=== PATIENT | female | born 1965 | race Caucasian/White ===

== ENCOUNTER 2019-01-02 17:10 | Emergency (ER) | payer SELFPAY ==
[2019-01-02 17:49] VITALS: TEMP 97.3; BMI 23.3
--- NOTE | 2019-01-02 17:51 | PDOC ---
Rapid Medical Evaluation Chief Complaint: Pain, Acute Time Seen by Provider: 01/02/19 17:44 Medical Evaluation: 01/02/19 17:45 I have performed a brief in-person evaluation of this patient. The patient presents with a chief complaint of: abd pain after taking Oxycodone took ~ 5 hours ago. - was mothers medication and had never taken before. States feels much improved now Pertinent physical exam findings: pale, lethargic but A&Ox 3 I have ordered the following: nothing The patient will proceed to the ED for further evaluation. 01/02/19 17:48 Discharge Disposition - Diagnosis Medication adverse effect - Referrals - Patient Instructions - Post Discharge Activity
--- NOTE | 2019-01-02 18:07 | PDOC ---
History of Present Illness - General Chief Complaint: Pain, Acute Stated Complaint: ALLERGIC REACTION Time Seen by Provider: 01/02/19 17:44 - History of Present Illness Initial Comments: 01/02/19 18:03 53-year-old female with a past medical history of depression self-medicating Tamy today with her mother's oxycodone. This was about 5 hours prior to arrival she took a nap and now she is feeling better. She is asymptomatic at this time. Past History - Past Medical History Allergies/Adverse Reactions: Allergies Allergy/AdvReac Type Severity Reaction Status Date / Time No Known Allergies Allergy Verified 01/02/19 17:49 Home Medications: Ambulatory Orders Bupropion HCl [Wellbutrin Xl] 300 mg PO DAILY 01/02/19 Dextroamphetamine/Amphetamine [Adderall Xr 30 mg Capsule] 60 mg PO DAILY Duloxetine HCl [Cymbalta] 120 mg PO DAILY 01/02/19 COPD: No Psychiatric Problems: Yes (bipolar disorder) - Suicide/Smoking/Psychosocial Hx Smoking History: Current every day smoker Number of Cigarettes Smoked Daily: 8 Information on smoking cessation initiated: No Hx Alcohol Use: No Drug/Substance Use Hx: No Review of Systems - Review of Systems Neurological: Yes: See HPI *Physical Exam - Vital Signs Last Vital Signs Temp Pulse Resp BP Pulse Ox 97.3 F L 67 16 113/51 L 97 01/02/19 17:45 01/02/19 17:45 01/02/19 17:45 01/02/19 17:45 01/02/19 17:45 - Physical Exam Comments: 01/02/19 18:05 HEAD: NC/AT EYES: Conjuntiva clear Ears: Canals and TM's normal NOSE: No d/c THROAT: Moist mucous membrances, oral pharanx clear, uvula midline NECK: Supple without adenopathy CARDIAC: S1 S2 LUNGS: CTA Full and Equal breath sounds ABDOMEN: Soft NT ND MS: Full ROM in all joints without edema NEUROLOGIC: No gross sensory or motor deficits, NVID; negative Romberg SKIN: Normal color and temperature no lesions or rashes Medical Decision Making - Medical Decision Making 01/02/19 18:05 Patient asymptomatic now after taking Percocet. She states she is opioid adalberto. She'll follow up with her PCP. 01/02/19 18:07 BP upon d/c is 127/69 *DC/Admit/Observation/Transfer Diagnosis at time of Disposition: Medication adverse effect - Discharge Dispostion Disposition: HOME Condition at time of disposition: Stable Decision to Admit order: No - Referrals Referrals: Uri Tang MD [Staff Physician] - - Patient Instructions Printed Discharge Instructions: DI for Prescription Opioid Use Additional Instructions: Please not self medicated with another's prescription medication. Return to the emergency room for worsening symptoms and follow up with her primary care physician in 1-2 days suture symptoms persist. - Post Discharge Activity
[2019-01-02 18:14] VITALS: BP 127/68; PULSE 68
== END 2019-01-02 18:02 | disposition home or self-care (01) ==
LOC: JERFT 17:10
DX: T40.2X1A Poisoning by other opioids, accidental (unintentional), initial encounter (principal); R10.9 Unspecified abdominal pain; Y92.038 Other place in apartment as the place of occurrence of the external cause
CPT/HCPCS: 99281-25

== ENCOUNTER 2019-06-05 17:46 | Inpatient (IN) | payer SELFPAY ==
--- NOTE | 2019-06-05 17:50 | PDOC ---
History of Present Illness - General History Source: Patient Exam Limitations: Clinical Condition - History of Present Illness Initial Comments: 06/05/19 18:45 53 yo F with a hx of bipolar disorder and depression HIRAM presents to the emergency department with AMS found down at her home. Per EMS, a "roommate" called saying the patient was altered. The patient was brought to the emergency department believed to have a seizure without a hx of seizures. I gathered the medical history from the patient's daughter (Jacquelyn Ambrose; [phone]) who states her mother has a hx of suicidal attempts 2-3 years ago with overdose on lithium (states she is no longer on lithium). The patient has access to cymbalta , adderall, xanax, and wellbutrin. Per the daughter, the mother recently was served an eviction notice from her home, lost her job recently, and had an exacerbation of her depression symptoms over the past week. Unable to perform ROS on the patient due to clinical condition. Allergies: NKDA Shx: Recent right hernia repair Social: Tobacco use positive. Daughter denies that the patient uses substance and alcohol. <Derek Garrett - Last Filed: 06/07/19 17:08> <Cj Hearn - Last Filed: 06/10/19 09:40> - General Chief Complaint: Seizure Stated Complaint: POSSIBLE SEIZURE Past History - Past Medical History COPD: No Psychiatric Problems: Yes (bipolar disorder) - Psycho Social/Smoking Cessation Hx Smoking History: Current every day smoker Number of Cigarettes Smoked Daily: 8 Hx Alcohol Use: No Drug/Substance Use Hx: No <Derek Garrett - Last Filed: 06/07/19 17:08> <Cj Hearn - Last Filed: 06/10/19 09:40> - Past Medical History Allergies/Adverse Reactions: Allergies Allergy/AdvReac Type Severity Reaction Status Date / Time No Known Allergies Allergy Verified 06/05/19 18:16 Home Medications: Ambulatory Orders Bupropion HCl [Wellbutrin Xl] 300 mg PO DAILY 01/02/19 Dextroamphetamine/Amphetamine [Adderall Xr 30 mg Capsule] 60 mg PO DAILY Duloxetine HCl [Cymbalta] 120 mg PO DAILY 01/02/19 Review of Systems - Review of Systems Able to Perform ROS?: No (AMS) Is the patient limited Yi proficient: No <Derek Garrett - Last Filed: 06/07/19 17:08> *Physical Exam - Physical Exam General Appearance: Yes: Nourished, Appropriately Dressed, Mild Distress, Other (dry mucous membranes. rhythmic movement of hip flexion bilaterally). No: Obese HEENT: positive: EOMI, ARIANA, Hearing Grossly Normal. negative: Normal Voice ( incoherent), Pharynx Normal (dry mucous membranes), Pale Conjunctivae, Scleral Icterus (R), Scleral Icterus (L), Pharyngeal Erythema, Tonsillar Exudate, Nasal Congestion, Rhinorrhea Neck: positive: Trachea midline, Supple. negative: Tender, Lymphadenopathy (R) , Lymphadenopathy (L), Tender lateral, Tender midline Respiratory/Chest: positive: Lungs Clear, Normal Breath Sounds. negative: Chest Tender, Respiratory Distress, Accessory Muscle Use, Rhonchi, Stridor, Wheezing Cardiovascular: positive: Regular Rhythm, Regular Rate, S1, S2. negative: Systolic Murmur Gastrointestinal/Abdominal: positive: Normal Bowel Sounds, Flat, Soft. negative : Tender Lymphatic: negative: Adenopathy Musculoskeletal: positive: Normal Inspection. negative: CVA Tenderness, Vertebral Tenderness Extremity: positive: Normal Capillary Refill, Normal Inspection, Normal Range of Motion. negative: Tender Integumentary: positive: Normal Color, Dry, Warm Neurologic: positive: correctional treatment specialist II-XII NML intact (grossly intact; limited examination ), Alert, Disoriented. negative: Fully Oriented (oriented to self only), Normal Mood/Affect, Normal Response, EOM Palsy, Facial Droop, Depressed Affect <TamiDerek - Last Filed: 06/07/19 17:08> - Vital Signs Last Vital Signs Temp Pulse Resp BP Pulse Ox 98.0 F 64 16 144/78 99 06/08/19 08:00 06/08/19 08:00 06/08/19 08:00 06/08/19 08:00 06/07/19 21:00 <Cj Hearn - Last Filed: 06/10/19 09:40> ED Treatment Course - LABORATORY CBC & Chemistry Diagram: 06/06/19 06:27 06/06/19 06:27 <TamiDerek - Last Filed: 06/07/19 17:08> - LABORATORY CBC & Chemistry Diagram: 06/06/19 06:27 06/06/19 06:27 - ADDITIONAL ORDERS Additional order review: 06/05/19 18:00 RBC 4.32 MCV 89.3 MCHC 33.3 RDW 13.0 MPV 8.0 Neutrophils % 85.1 H Lymphocytes % 11.2 Monocytes % 3.2 L Eosinophils % 0.0 Basophils % 0.5 - Medications Given in the ED: ED Medications Discontinued Medications Generic Name Dose Route Start Last Admin Trade Name Freq PRN Reason Stop Dose Admin Acetaminophen 975 mg 06/06/19 12:21 06/06/19 12:23 Tylenol - PO 06/06/19 12:22 975 mg ONCE ONE Administration Acetaminophen 650 mg 06/06/19 17:38 06/07/19 04:55 Tylenol - PO 650 mg Q6H PRN Administration FEVER Bupropion HCl 300 mg 06/07/19 22:30 06/08/19 10:22 Wellbutrin Xl - PO 300 mg DAILY WALESKA Administration Duloxetine HCl 120 mg 06/07/19 22:17 06/08/19 10:22 Cymbalta - PO 120 mg DAILY WALESKA Administration Heparin Sodium (Porcine) 5,000 unit 06/05/19 22:00 06/08/19 10:24 Heparin - SQ Not Given BID WALESKA Sodium Chloride 1,000 mls @ 1,000 mls/hr 06/05/19 18:21 06/05/19 18:42 Normal Saline - IV 06/05/19 19:20 1,000 mls/hr ASDIR STA Administration Sodium Chloride 1,000 mls @ 100 mls/hr 06/05/19 20:45 06/07/19 21:20 Normal Saline - IV 100 mls/hr ASDIR WALESKA Administration Lorazepam 1 mg 06/05/19 17:54 06/05/19 18:42 Ativan Injection - IVPUSH 06/05/19 17:55 Not Given ONCE ONE Metoclopramide HCl 10 mg 06/05/19 23:56 06/06/19 02:03 Reglan Injection - IVPUSH 06/05/19 23:57 10 mg ONCE ONE Administration Nicotine 21 mg 06/07/19 12:00 06/07/19 12:08 Nicoderm Patch - TD 06/07/19 12:01 21 mg ONCE ONE Administration Sodium Chloride 1,000 ml 06/05/19 19:42 06/05/19 21:08 Normal Saline - IV 06/05/19 19:43 1,000 ml ONCE ONE Administration <Cj Hearn - Last Filed: 06/10/19 09:40> Medical Decision Making - Medical Decision Making 53 yo F with a hx of bipolar disorder and depression HIRAM presents to the emergency department with AMS found down at her home. Initial vitals: Initial Vital Signs Temp Pulse Resp BP Pulse Ox 97.3 F L 79 16 90/79 99 06/05/19 17:50 06/05/19 17:50 06/05/19 17:50 06/05/19 17:50 06/05/19 17:50 Work up: patient presents to the emergency department s/p possible seizure per EMS who states another individual in the home called EMS services. The patient is arousable, currently screaming out for her mother and able to say her name but unable to answer most questions. Patient is on multiple medications per the chart. I spoke to the daughter who stated that she has had multiple suicidal attempts in the past with overdosing on lithium (states she is not on lithium currently) Will treat the case as a possible toxidrome. Will obtain CT head, metabolic derangements, EKG to screen for arrhythmia, CBC, CMP, TROP, ethanol, salicylate , lithium level, and tylenol level. Will obtain UDS, UA, and Ucx. I spoke to poison control which indicated supportive care. agrees with current management. Ddx includes xanax overdose, adderall overdose (less likely because of periodic lethargy), anti-cholinergic toxicity (given use of welbutrin), and less likely to be serotonin syndrome. 06/05/19 19:03 Patient stated she was trying to hurt herself when she took the extra meds. Laboratory Tests 06/05/19 06/05/19 06/05/19 18:00 18:00 18:00 WBC 10.3 H RBC 4.32 Hgb 12.8 Hct 38.5 MCV 89.3 MCH 29.7 MCHC 33.3 RDW 13.0 Plt Count 250 MPV 8.0 Absolute Neuts (auto) 8.7 H Neutrophils % 85.1 H Lymphocytes % 11.2 Monocytes % 3.2 L Eosinophils % 0.0 Basophils % 0.5 Nucleated RBC % 0 PT with INR INR PTT (Actin FS) VBG pH POC VBG pCO2 POC VBG pO2 VBG HCO3 VBG O2 Sat (James) VBG Base Excess Sodium Potassium Chloride Carbon Dioxide Anion Gap BUN Creatinine Est GFR (CKD-EPI)AfAm Est GFR (CKD-EPI)NonAf Random Glucose Calcium Magnesium Total Bilirubin AST ALT Alkaline Phosphatase Ammonia Creatine Kinase Troponin I Total Protein Albumin TSH Salicylates < 1.7 L Acetaminophen <2.0 Deans Alcohol, Quantitative 06/05/19 06/05/19 06/05/19 18:00 18:00 18:00 WBC RBC Hgb Hct MCV MCH MCHC RDW Plt Count MPV Absolute Neuts (auto) Neutrophils % Lymphocytes % Monocytes % Eosinophils % Basophils % Nucleated RBC % PT with INR INR PTT (Actin FS) VBG pH 7.34 POC VBG pCO2 49.1 POC VBG pO2 < 49 H VBG HCO3 25.8 VBG O2 Sat (James) 73.0 VBG Base Excess 0.1 Sodium 139 Potassium 4.4 Chloride 105 Carbon Dioxide 26 Anion Gap 8 BUN 11.1 Creatinine 0.7 Est GFR (CKD-EPI)AfAm 113.84 Est GFR (CKD-EPI)NonAf 98.23 Random Glucose 127 H Calcium 8.3 L Magnesium 1.8 Total Bilirubin 0.3 AST 21 ALT 19 Alkaline Phosphatase 67 Ammonia Creatine Kinase 87 Troponin I < 0.02 Total Protein 6.4 Albumin 3.7 TSH 0.56 Salicylates Acetaminophen Deans Alcohol, Quantitative < 3 06/05/19 06/05/19 06/05/19 18:00 18:31 19:00 WBC RBC Hgb Hct MCV MCH MCHC RDW Plt Count MPV Absolute Neuts (auto) Neutrophils % Lymphocytes % Monocytes % Eosinophils % Basophils % Nucleated RBC % PT with INR 11.10 INR 0.94 PTT (Actin FS) 27.3 VBG pH POC VBG pCO2 POC VBG pO2 VBG HCO3 VBG O2 Sat (James) VBG Base Excess Sodium Potassium Chloride Carbon Dioxide Anion Gap BUN Creatinine Est GFR (CKD-EPI)AfAm Est GFR (CKD-EPI)NonAf Random Glucose Calcium Magnesium Total Bilirubin AST ALT Alkaline Phosphatase Ammonia 18.30 Creatine Kinase Troponin I Total Protein Albumin TSH Salicylates Acetaminophen Deans 0 L Alcohol, Quantitative labs within normal limit. EKG shows NSR without QRS widening, ST elevations or depressions. There is QT prolongation with it at QTc at [address] within normal limits. Patient was started on 1 L of NS. Ativan ordered PRN for agitation. Patient signed out to Dr. Charlton. <Derek Garrett - Last Filed: 06/07/19 17:08> - Medical Decision Making 06/10/19 09:40 ativan was not given upon arrival as pt was able to comply with treatmen tand obtain CT head <Cj Hearn - Last Filed: 06/10/19 09:40> Discharge - Discharge Information Problems reviewed: Yes <Derek Garrett - Last Filed: 06/07/19 17:08> <Cj Heanr - Last Filed: 06/10/19 09:40> - Discharge Information Clinical Impression/Diagnosis: Altered mental status, Depression Disposition: HOME
--- NOTE | 2019-06-05 17:57 | PDOC ---
Attending Attestation - Resident Resident Name: Derek Garrett - ED Attending Attestation I have performed the following: I have examined & evaluated the patient, The case was reviewed & discussed with the resident, I agree w/resident's findings & plan, Exceptions are as noted - HPI HPI: 06/05/19 17:54 53y hx of bipolar disorder presents with AMS -Per EMS the patient was found laying on the ground by the patient's roommate. There is no other information given by EMS, and roommate stayed home. The patient is unable to give any history she did tell us that her name was Katalina. The patient's mother called the hospital saying that she was brought in for evaluation and is coming to see the patient. The patient is unable to give us any history she is screaming and asking for her mother, looking disheveled, unable to speak clearly but when asked for name last name is Lei the patient does nod her head. On arrival the patient's BGM was 128. GENERAL: The patient is awake,, agitated, screaming incoherently HEAD: Normocephalic, atraumatic. EYES: extraocular movements intact, sclera anicteric, conjunctiva clear. ENT: Normal voice, dry mucous membranes. NECK: Normal range of motion, supple LUNGS: Breath sounds equal, clear to auscultation bilaterally. No wheezes, no rhonchi, no rales. HEART: Regular rate and rhythm, normal S1 and S2 without murmur, rub or gallop. ABDOMEN: Soft, mild diffuse lower abdominal tenderness, clean scar noted on the right lower quadrant EXTREMITIES: Normal range of motion, no edema. NEUROLOGICAL: No facial assymetry, Normal speech, Withdraws to pain bilaterally , rhythmic motions of lower extremities PSYCH: agitated SKIN: Warm, Dry, normal turgor, Patient's oral membrane is dry - will hydrate Will obtain a CT head, will rule out metabolic derangements, ingestions, acs ekg to screen fora rrythmias Will likely need some Ativan as the patient is agitated and will not cooperate with CT. after further discussion with family and pts son - pt has a history of SA with lithium ingestion. per mother who is bedside -the pt had recently lost evertyhing including her car, house and job and has been fairly stressed out. pt does endorse taking extra meds to harm herself - did not elaborate on what she took. will dw tox - pt is on buproprion, xanax, adderal ekg noted for prolonged qtc - Physicial Exam PE: 06/10/19 08:15 see above - Critical Care Time Total Critical Care Time: 35 Critical Care Statement: The care of this patient involved high complexity decision making to prevent further life threatening deterioration of the patient 's condition and/or to evaluate & treat vital organ system(s) failure or risk of failure. - Medical Decision Making 06/05/19 19:15 labs pending case signed out to evening team to dispo the patient and review results Heart Score/ECG Review - ECG Impressions Comment:: 06/05/19 18:22 Twelve-lead EKG was performed and reviewed by me. There is normal sinus rhythm with a normal rate. rate of 62 The axis is normal. qtc prolongation at 506
[2019-06-05 18:18] LABS: BASO % 0.5 % (0-2.0); HEMATOCRIT 38.5 % (32.4-45.2); HEMOGLOBIN 12.8 GM/dL (10.7-15.3); LYMPH % 11.2 % (8-40); MCH 29.7 pg (25.7-33.7); MCHC 33.3 g/dl (32.0-36.0); MEAN CELL VOLUME 89.3 fl (80-96); MONO % 3.2 % (3.8-10.2); NEUT % 85.1 % (42.8-82.8); PLATELET COUNT 250 K/MM3 (134-434); RBC 4.32 M/mm3 (3.60-5.2); VENOUS PC02 49.1 mmHg (38-52); VENOUS PH 7.34 (7.31-7.41); WHITE BLOOD COUNT 10.3 K/mm3 (4.0-10.0)
[2019-06-05] MEDS ORDERED: SODIUM CHLORIDE 1,000 ML IV STA (18:21)
[2019-06-05 18:25] LABS: VENOUS PO2 < 49 mmHg (28-48)
[2019-06-05 18:43] LABS: INR 0.94 (0.83-1.09); PROTHROMBIN TIME (PATIENT) 11.1 SEC (9.7-13.0)
[2019-06-05 18:46] LABS: ACTIVATED PTT 27.3 SECONDS (25.2-36.5)
[2019-06-05 18:55] LABS: MAGNESIUM 1.8 mg/dL (1.8-2.4)
[2019-06-05 19:05] LABS: ALBUMIN 3.7 g/dl (3.4-5.0); ALK PHOS 67 U/L (45-117); ANION GAP 8 MMOL/L (8-16); BILIRUBIN,TOTAL 0.3 mg/dL (0.2-1); BLOOD UREA NITROGEN 11.1 mg/dL (7-18); CALCIUM 8.3 mg/dL (8.5-10.1); CHLORIDE 105 mmol/L (98-107); CO2 26 mmol/L (21-32); CREATININE 0.7 mg/dL (0.55-1.3); GLUCOSE,RANDOM 127 mg/dL (74-106); POTASSIUM 4.4 mmol/L (3.5-5.1); SGOT/AST 21 U/L (15-37); SGPT/ALT 19 U/L (13-61); SODIUM 139 mmol/L (136-145); TOT PROT 6.4 g/dl (6.4-8.2)
--- NOTE | 2019-06-05 19:14 | PDOC ---
ED Treatment Course - LABORATORY CBC & Chemistry Diagram: 06/05/19 18:00 06/05/19 18:00 Medical Decision Making - Medical Decision Making Pt signed out to me by Dr. Garrett, see prior note. 53 year old female with PMH bipolar disorder, suicidal attempt (lithium ingestion) BIBA to ED after being found down at home. There was question of a seizure, but none was witnessed and no post-ictal period was observed. Jacquelyn Ambrose (pt daughter) ) reported pt has had a lot of life stressors lately and she believed the pt ingested something to kill herself. Pt awoke in ED and reported she took pills of unknown type and unknown amount in an effort to kill herself. Tox center recommended 24 hour observation for unknown ingestion. Initial Vital Signs Temp Pulse Resp BP Pulse Ox 97.3 F L 79 16 90/79 99 06/05/19 17:50 06/05/19 17:50 06/05/19 17:50 06/05/19 17:50 06/05/19 17:50 EKG performed at 1734: rate 76, regular rhythm, normal axis, QTc 506, nonspecific ST changes. Ativan was ordered for agitation, but then not given after pt calmed down. Laboratory Last Values WBC 10.3 K/mm3 (4.0-10.0) H 06/05/19 18:00 RBC 4.32 M/mm3 (3.60-5.2) 06/05/19 18:00 Hgb 12.8 GM/dL (10.7-15.3) 06/05/19 18:00 Hct 38.5 % (32.4-45.2) 06/05/19 18:00 MCV 89.3 fl (80-96) 06/05/19 18:00 MCH 29.7 pg (25.7-33.7) 06/05/19 18:00 MCHC 33.3 g/dl (32.0-36.0) 06/05/19 18:00 RDW 13.0 % (11.6-15.6) 06/05/19 18:00 Plt Count 250 K/MM3 (134-434) 06/05/19 18:00 MPV 8.0 fl (7.5-11.1) 06/05/19 18:00 Absolute Neuts (auto) 8.7 K/mm3 (1.5-8.0) H 06/05/19 18:00 Neutrophils % 85.1 % (42.8-82.8) H 06/05/19 18:00 Lymphocytes % 11.2 % (8-40) 06/05/19 18:00 Monocytes % 3.2 % (3.8-10.2) L 06/05/19 18:00 Eosinophils % 0.0 % (0-4.5) 06/05/19 18:00 Basophils % 0.5 % (0-2.0) 06/05/19 18:00 Nucleated RBC % 0 % (0-0) 06/05/19 18:00 PT with INR 11.10 SEC (9.7-13.0) 06/05/19 18:00 INR 0.94 (0.83-1.09) 06/05/19 18:00 PTT (Actin FS) 27.3 SECONDS (25.2-36.5) 06/05/19 18:00 VBG pH 7.34 (7.31-7.41) 06/05/19 18:00 POC VBG pCO2 49.1 mmHg (38-52) 06/05/19 18:00 POC VBG pO2 < 49 mmHg (28-48) H 06/05/19 18:00 VBG HCO3 25.8 mmol/L (23-29) 06/05/19 18:00 VBG O2 Sat (James) 73.0 % (70-80) 06/05/19 18:00 VBG Base Excess 0.1 meq/l (-2-2) 06/05/19 18:00 Sodium 139 mmol/L (136-145) 06/05/19 18:00 Potassium 4.4 mmol/L (3.5-5.1) 06/05/19 18:00 Chloride 105 mmol/L (98-107) 06/05/19 18:00 Carbon Dioxide 26 mmol/L (21-32) 06/05/19 18:00 Anion Gap 8 MMOL/L (8-16) 06/05/19 18:00 BUN 11.1 mg/dL (7-18) 06/05/19 18:00 Creatinine 0.7 mg/dL (0.55-1.3) 06/05/19 18:00 Est GFR (CKD-EPI)AfAm 113.84 06/05/19 18:00 Est GFR (CKD-EPI)NonAf 98.23 06/05/19 18:00 Random Glucose 127 mg/dL (74-106) H 06/05/19 18:00 Calcium 8.3 mg/dL (8.5-10.1) L 06/05/19 18:00 Magnesium 1.8 mg/dL (1.8-2.4) 06/05/19 18:00 Total Bilirubin 0.3 mg/dL (0.2-1) 06/05/19 18:00 AST 21 U/L (15-37) 06/05/19 18:00 ALT 19 U/L (13-61) 06/05/19 18:00 Alkaline Phosphatase 67 U/L (45-117) 06/05/19 18:00 Creatine Kinase 87 U/L (26-192) 06/05/19 18:00 Troponin I < 0.02 ng/ml (0.00-0.05) 06/05/19 18:00 Total Protein 6.4 g/dl (6.4-8.2) 06/05/19 18:00 Albumin 3.7 g/dl (3.4-5.0) 06/05/19 18:00 TSH 0.56 uIU/ml (0.358-3.74) 06/05/19 18:00 Acetaminophen <2.0 06/05/19 18:00 Alcohol, Quantitative < 3 mg/dL (0.0-5.0) 06/05/19 18:00 Borderline leukocytosis with borderline left shift. No anemia. No electrolyte abnormalities. No PAUL. No transaminitis. Troponin undetectable. TSH wnl. ETOH/Acetaminophen level negative. Would repeat at 4 hours as pt has unknown ingestion. 06/05/19 19:22 ICU consulted. 06/05/19 19:34 ICU at bedside. 06/05/19 19:43 CT head report: Name: [facility] Phys: Derek Garrett RESIDENT : 1965 Age: 53 Sex: F [facility] Acct: [id number] Loc: [address] Exam Date: 06/05/19 Status: REG PAULO [place] [address] Unit Number: [id number] EXAM#: TYPE/EXAM: RESULT: [id number] CT/HEAD CT WITHOUT CONTRAST Cranial CT without contrast Clinical information: altered mental status Multiplanar imaging was performed. Intravenous contrast was not administered. No intracranial hemorrhage is seen. There is no extra-axial fluid collection. No obvious infarct or mass lesion is noted. The ventricles and cisterns appear unremarkable. There is no definite abnormal intracranial attenuation. The calvarium appears intact. A nonspecific 0.8 cm left parietal subcutaneous nodule is seen containing a punctate calcification (transaxial image 44) - ? sebaceous cyst. Impression: No CT evidence of acute intracranial pathology. 0.8 cm left parietal subcutaneous nodule. Reported By: Getachew Velazquez MD 06/05/191934 ICU advised Tele admission at this time as pt is hemodynamically stable. 06/05/19 19:[address] Tang's service. 06/05/19 23:19 Pt is much more alert, speaking full sentences, answering questions appropriately. Straight cath performed for UDS/UA. 06/05/19 23:54 Pt vomiting. 06/05/19 23:56 [facility] Poison Control stated she can have Reglan for nausea, vomiting. They recommended repeat mag and repeat EKG. Above ordered. 06/06/19 01:05 UD positive for benzos and amphetamines. Discharge - Discharge Information Problems reviewed: Yes Clinical Impression/Diagnosis: Altered mental status, Depression Condition: Stable - Admission Yes - Follow up/Referral - Patient Discharge Instructions - Post Discharge Activity
[2019-06-05] MEDS ORDERED: SODIUM CHLORIDE 0.9% 1000 ML INFUS.BAG IV ONE (19:42)
--- NOTE | 2019-06-05 20:01 | PDOC ---
*Physical Exam - Vital Signs Last Vital Signs Temp Pulse Resp BP Pulse Ox 97.3 F L 79 16 90/79 99 06/05/19 17:50 06/05/19 17:50 06/05/19 17:50 06/05/19 17:50 06/05/19 17:50 - Physical Exam 06/05/19 19:55 pt somnolent but arousable with questioning. answers questions intermittently. dry mucous membranes. small abrasion over forehead. lungs clear bilat heart rrr no mrg abd soft nt nt ext wwp no edema. no calf tenderness. no noted rigidity or clonus. moves all four ext. ED Treatment Course - LABORATORY CBC & Chemistry Diagram: 06/05/19 18:00 06/05/19 18:00 - ADDITIONAL ORDERS Additional order review: Laboratory Results 06/05/19 06/05/19 06/05/19 18:00 18:00 18:00 PT with INR 11.10 INR 0.94 PTT (Actin FS) 27.3 VBG pH 7.34 POC VBG pCO2 49.1 POC VBG pO2 < 49 H VBG HCO3 25.8 VBG O2 Sat (James) 73.0 VBG Base Excess 0.1 Sodium Potassium Chloride Carbon Dioxide Anion Gap BUN Creatinine Est GFR (CKD-EPI)AfAm Est GFR (CKD-EPI)NonAf Random Glucose Calcium Magnesium 1.8 Total Bilirubin AST ALT Alkaline Phosphatase Creatine Kinase Troponin I Total Protein Albumin TSH 0.56 Salicylates Acetaminophen Alcohol, Quantitative 06/05/19 06/05/19 06/05/19 18:00 18:00 18:00 PT with INR INR PTT (Actin FS) VBG pH POC VBG pCO2 POC VBG pO2 VBG HCO3 VBG O2 Sat (James) VBG Base Excess Sodium 139 Potassium 4.4 Chloride 105 Carbon Dioxide 26 Anion Gap 8 BUN 11.1 Creatinine 0.7 Est GFR (CKD-EPI)AfAm 113.84 Est GFR (CKD-EPI)NonAf 98.23 Random Glucose 127 H Calcium 8.3 L Magnesium Total Bilirubin 0.3 AST 21 ALT 19 Alkaline Phosphatase 67 Creatine Kinase 87 Troponin I < 0.02 Total Protein 6.4 Albumin 3.7 TSH Salicylates < 1.7 L Acetaminophen <2.0 Alcohol, Quantitative < 3 06/05/19 18:00 RBC 4.32 MCV 89.3 MCHC 33.3 RDW 13.0 MPV 8.0 Neutrophils % 85.1 H Lymphocytes % 11.2 Monocytes % 3.2 L Eosinophils % 0.0 Basophils % 0.5 - Medications Given in the ED: ED Medications Discontinued Medications Generic Name Dose Route Start Last Admin Trade Name Moises PRN Reason Stop Dose Admin Sodium Chloride 1,000 mls @ 1,000 mls/hr 06/05/19 18:21 06/05/19 18:42 Normal Saline - IV 06/05/19 19:20 1,000 mls/hr ASDIR STA Administration Lorazepam 1 mg 06/05/19 17:54 06/05/19 18:42 Ativan Injection - IVPUSH 06/05/19 17:55 Not Given ONCE ONE Medical Decision Making - Medical Decision Making 06/05/19 19:57 53 yo F signed out to me by day team. assumed care of pt at 1900. glendyifly 53 yo F h/o bipolar depression., prior suicide attempts brought here by ambulance after found down. questionable h/o seizures, although unclear . per mother states she saw her over the weekend for holidays, was texting with her yesterday. today her neighbor called EMS because heard pt yell. was found on floor altered. pt unwilling or unable to provide further history. per mother pt h/o suicde attempt in the past took lithium. mother states pt has had rough year, was recently received an eviction notice from her landlord. meds. welbutrin, cymbalta, adderall, on my exam pt altered, dry, v/s not supporting stimulant toxidrome. not supporting withdrawal of benzo or alcohol, not fitting SSRI syndrome. could be possible mixed ingestion. no fever to support sepsis. labs reviewed. drug tox pending ct head obtained and normal. case d/w poison control center, rec 24 hours medical observation for clearance due to med list. 06/05/19 20:09 case d/w dr Crystal, consult placed. will see pt in am. recommend admission for medical clearance, further workup AMS. dw dr Tang for admission. mother at bedside tried to call neighbor for more info, they did not answer, mother is Deisi Silveira land line [phone]. cell [phone]. will admit pt to telemetry for concerns possible dysrhythmia from tox ingestion. 06/05/19 23:19 pt reassessed for cath UA. much more alert. talking and answering questions. states she had a right femoral hernia repair in [place] in april. today had episode of abd pain, was scared because she was alone so called out. denies ingestions. denies suicidality however is tearful when explaining she lost her job, recently and is getting evicted from her apartment. she plans on staying wiht her mom in the future. ua obtained and sent results pending. Discharge - Discharge Information Problems reviewed: Yes Clinical Impression/Diagnosis: Altered mental status, Depression Condition: Stable - Admission Yes - Follow up/Referral - Patient Discharge Instructions - Post Discharge Activity
--- NOTE | 2019-06-05 20:40 | HP ---
Admitting History and Physical - Primary Care Physician PCP: Uri Tang - Admission History of Present Illness: 53 yo F with a hx of bipolar disorder and depression HIRAM presents to the emergency department with AMS found down at her home. Per EMS, a "roommate" called saying the patient was altered. The patient was brought to the emergency department believed to have a seizure without a hx of seizures. I gathered the medical history from the patient's daughter (Jacquelyn Ambrose; [phone]) who states her mother has a hx of suicidal attempts 2-3 years ago with overdose on lithium (states she is no longer on lithium). The patient has access to cymbalta , adderall, xanax, and wellbutrin. Per the daughter, the mother recently was served an eviction notice from her home, lost her job recently, and had an exacerbation of her depression symptoms over the past week. Unable to perform ROS on the patient due to clinical condition. - Past Medical History Psych: Yes: Bipolar - Smoking History Smoking history: Current every day smoker Have you smoked in the past 12 months: No Aproximately how many cigarettes per day: 8 - Alcohol/Substance Use Hx Alcohol Use: No Home Medications - Allergies Allergies/Adverse Reactions: Allergies Allergy/AdvReac Type Severity Reaction Status Date / Time No Known Allergies Allergy Verified 06/05/19 18:16 - Home Medications Home Medications: Ambulatory Orders Bupropion HCl [Wellbutrin Xl] 300 mg PO DAILY 01/02/19 Dextroamphetamine/Amphetamine [Adderall Xr 30 mg Capsule] 60 mg PO DAILY Duloxetine HCl [Cymbalta] 120 mg PO DAILY 01/02/19 Physical Examination Vital Signs: Vital Signs Temperature 98.1 F 06/05/19 20:16 Pulse Rate 84 06/05/19 20:16 Respiratory Rate 25 H 06/05/19 20:16 Blood Pressure 117/58 L 06/05/19 20:16 O2 Sat by Pulse Oximetry (%) 96 06/05/19 20:16 Constitutional: Yes: Other (lethargic) HENT: Yes: Atraumatic Neck: Yes: Supple Cardiovascular: Yes: Regular Rate and Rhythm Respiratory: Yes: Rhonchi Gastrointestinal: Yes: Normal Bowel Sounds Extremities: Yes: WNL Neurological: Yes: Other (drowsy) Labs: CBC, BMP 06/05/19 18:00 06/05/19 18:00 Imaging - Results Cat Scan: Report Reviewed Problem List - Problems (1) Altered mental status Assessment/Plan: supportive measures Code(s): R41.82 - ALTERED MENTAL STATUS, UNSPECIFIED (2) Depression Code(s): F32.9 - MAJOR DEPRESSIVE DISORDER, SINGLE EPISODE, UNSPECIFIED (3) Medication adverse effect Code(s): T50.905A - ADVERSE EFFECT OF UNSP DRUG/MEDS/BIOL SUBST, INIT Assessment/Plan Laboratory Tests 06/05/19 06/05/19 06/05/19 18:00 18:00 18:00 WBC 10.3 H RBC 4.32 Hgb 12.8 Hct 38.5 MCV 89.3 MCH 29.7 MCHC 33.3 RDW 13.0 Plt Count 250 MPV 8.0 Absolute Neuts (auto) 8.7 H Neutrophils % 85.1 H Lymphocytes % 11.2 Monocytes % 3.2 L Eosinophils % 0.0 Basophils % 0.5 Nucleated RBC % 0 PT with INR INR PTT (Actin FS) VBG pH POC VBG pCO2 POC VBG pO2 VBG HCO3 VBG O2 Sat (James) VBG Base Excess Sodium Potassium Chloride Carbon Dioxide Anion Gap BUN Creatinine Est GFR (CKD-EPI)AfAm Est GFR (CKD-EPI)NonAf Random Glucose Calcium Magnesium Total Bilirubin AST ALT Alkaline Phosphatase Ammonia Creatine Kinase Troponin I Total Protein Albumin TSH Salicylates < 1.7 L Acetaminophen <2.0 Alcohol, Quantitative 06/05/19 06/05/19 06/05/19 18:00 18:00 18:00 WBC RBC Hgb Hct MCV MCH MCHC RDW Plt Count MPV Absolute Neuts (auto) Neutrophils % Lymphocytes % Monocytes % Eosinophils % Basophils % Nucleated RBC % PT with INR INR PTT (Actin FS) VBG pH 7.34 POC VBG pCO2 49.1 POC VBG pO2 < 49 H VBG HCO3 25.8 VBG O2 Sat (James) 73.0 VBG Base Excess 0.1 Sodium 139 Potassium 4.4 Chloride 105 Carbon Dioxide 26 Anion Gap 8 BUN 11.1 Creatinine 0.7 Est GFR (CKD-EPI)AfAm 113.84 Est GFR (CKD-EPI)NonAf 98.23 Random Glucose 127 H Calcium 8.3 L Magnesium 1.8 Total Bilirubin 0.3 AST 21 ALT 19 Alkaline Phosphatase 67 Ammonia Creatine Kinase 87 Troponin I < 0.02 Total Protein 6.4 Albumin 3.7 TSH 0.56 Salicylates Acetaminophen Alcohol, Quantitative < 3 06/05/19 06/05/19 18:00 19:00 WBC RBC Hgb Hct MCV MCH MCHC RDW Plt Count MPV Absolute Neuts (auto) Neutrophils % Lymphocytes % Monocytes % Eosinophils % Basophils % Nucleated RBC % PT with INR 11.10 INR 0.94 PTT (Actin FS) 27.3 VBG pH POC VBG pCO2 POC VBG pO2 VBG HCO3 VBG O2 Sat (James) VBG Base Excess Sodium Potassium Chloride Carbon Dioxide Anion Gap BUN Creatinine Est GFR (CKD-EPI)AfAm Est GFR (CKD-EPI)NonAf Random Glucose Calcium Magnesium Total Bilirubin AST ALT Alkaline Phosphatase Ammonia 18.30 Creatine Kinase Troponin I Total Protein Albumin TSH Salicylates Acetaminophen Alcohol, Quantitative Active Medications Generic Name Dose Route Start Last Admin Trade Name Freq PRN Reason Stop Dose Admin Acetaminophen 650 mg 06/06/19 17:38 06/07/19 04:55 Tylenol - PO 650 mg Q6H PRN Administration FEVER Duloxetine HCl 40 mg 06/08/19 10:00 Cymbalta - PO DAILY [facility] Heparin Sodium (Porcine) 5,000 unit 06/05/19 22:00 06/07/19 09:26 Heparin - SQ 5,000 unit BID [facility] Administration Sodium Chloride 1,000 mls @ 100 mls/hr 06/05/19 20:45 06/06/19 23:45 Normal Saline - IV 100 mls/hr ASDIR [facility] Administration
--- NOTE | 2019-06-05 20:44 | CONSULT ---
Consultation: REQUESTING PROVIDER: CONSULT REQUEST: We have been asked to medically evaluate this patient for ICU care. HISTORY OF PRESENT ILLNESS: Ms. Odom is a 53 yo female w/ pmh of bipolar disorder and depression BIBA after being found down at her home. EMS reported roommate reported patient as altered. Family reported to ED staff that patient has a history of a suicidal attempt in the past with most recent 2-3 years ago consisting of an intentional lithium overdose. Family further reports patient recently received eviction notice, lost job, and has had exacerbation of depression symptoms for the past week. Reported to ER staff that she intentionally overdosed on pills tonight in an effort to kill herself. Patient takes wellbutrin, adderall, and cymbalta. Head CT negative for acute process. Utox pending at this time. REVIEW OF SYSTEMS: Unable to obtain further at this time. PHYSICAL EXAMINATION Vital Signs - 24 hr 06/05/19 06/05/19 17:50 20:16 Temperature 97.3 F L 98.1 F Pulse Rate 79 Pulse Rate [ 84 Right Radial] Respiratory 16 25 H Rate Blood Pressure 90/79 Blood Pressure 117/58 L [Right Arm] O2 Sat by Pulse 99 96 Oximetry (%) GENERAL: +Patient altered at this time. In no acute distress. HEAD: Normal with no signs of trauma. EYES: Pupils equal, round and reactive to light, extraocular movements intact, sclera anicteric, conjunctiva clear. No lid lag. EARS, NOSE, THROAT: Ears normal, nares patent, oropharynx clear without exudates. Moist mucous membranes. NECK: Normal range of motion, supple without lymphadenopathy, JVD, or masses. LUNGS: Breath sounds equal, clear to auscultation bilaterally. No wheezes, and no crackles. No accessory muscle use. HEART: Regular rate and rhythm, normal S1 and S2 without murmur, rub or gallop. ABDOMEN: Soft, nontender, not distended, normoactive bowel sounds, no guarding, no rebound, no masses. No hepatomegaly or splenomegaly. MUSCULOSKELETAL: Normal range of motion at all joints. No bony deformities or tenderness. No CVA tenderness. UPPER EXTREMITIES: 2+ pulses, warm, well-perfused. No cyanosis. No clubbing. Cap refill <2 seconds. No peripheral edema. LOWER EXTREMITIES: 2+ pulses, warm, well-perfused. No calf tenderness. No peripheral edema. NEUROLOGICAL: +Unable to assess PSYCHIATRIC: +Patient uncooperative at this time. SKIN: Warm, dry, normal turgor, no rashes or lesions noted. Laboratory Results - last 24 hr 06/05/19 06/05/19 06/05/19 18:00 18:00 18:00 WBC 10.3 H RBC 4.32 Hgb 12.8 Hct 38.5 MCV 89.3 MCH 29.7 MCHC 33.3 RDW 13.0 Plt Count 250 MPV 8.0 Absolute Neuts (auto) 8.7 H Neutrophils % 85.1 H Lymphocytes % 11.2 Monocytes % 3.2 L Eosinophils % 0.0 Basophils % 0.5 Nucleated RBC % 0 PT with INR INR PTT (Actin FS) VBG pH POC VBG pCO2 POC VBG pO2 VBG HCO3 VBG O2 Sat (James) VBG Base Excess Sodium Potassium Chloride Carbon Dioxide Anion Gap BUN Creatinine Est GFR (CKD-EPI)AfAm Est GFR (CKD-EPI)NonAf Random Glucose Calcium Magnesium Total Bilirubin AST ALT Alkaline Phosphatase Ammonia Creatine Kinase Troponin I Total Protein Albumin TSH Salicylates < 1.7 L Acetaminophen <2.0 Alcohol, Quantitative 06/05/19 06/05/19 06/05/19 18:00 18:00 18:00 WBC RBC Hgb Hct MCV MCH MCHC RDW Plt Count MPV Absolute Neuts (auto) Neutrophils % Lymphocytes % Monocytes % Eosinophils % Basophils % Nucleated RBC % PT with INR INR PTT (Actin FS) VBG pH 7.34 POC VBG pCO2 49.1 POC VBG pO2 < 49 H VBG HCO3 25.8 VBG O2 Sat (James) 73.0 VBG Base Excess 0.1 Sodium 139 Potassium 4.4 Chloride 105 Carbon Dioxide 26 Anion Gap 8 BUN 11.1 Creatinine 0.7 Est GFR (CKD-EPI)AfAm 113.84 Est GFR (CKD-EPI)NonAf 98.23 Random Glucose 127 H Calcium 8.3 L Magnesium 1.8 Total Bilirubin 0.3 AST 21 ALT 19 Alkaline Phosphatase 67 Ammonia Creatine Kinase 87 Troponin I < 0.02 Total Protein 6.4 Albumin 3.7 TSH 0.56 Salicylates Acetaminophen Alcohol, Quantitative < 3 06/05/19 06/05/19 18:00 19:00 WBC RBC Hgb Hct MCV MCH MCHC RDW Plt Count MPV Absolute Neuts (auto) Neutrophils % Lymphocytes % Monocytes % Eosinophils % Basophils % Nucleated RBC % PT with INR 11.10 INR 0.94 PTT (Actin FS) 27.3 VBG pH POC VBG pCO2 POC VBG pO2 VBG HCO3 VBG O2 Sat (James) VBG Base Excess Sodium Potassium Chloride Carbon Dioxide Anion Gap BUN Creatinine Est GFR (CKD-EPI)AfAm Est GFR (CKD-EPI)NonAf Random Glucose Calcium Magnesium Total Bilirubin AST ALT Alkaline Phosphatase Ammonia 18.30 Creatine Kinase Troponin I Total Protein Albumin TSH Salicylates Acetaminophen Alcohol, Quantitative Active Medications Generic Name Dose Route Start Last Admin Trade Name Freq PRN Reason Stop Dose Admin Heparin Sodium (Porcine) 5,000 unit 06/05/19 22:00 Heparin - SQ BID WALESKA Sodium Chloride 1,000 mls @ 100 mls/hr 06/05/19 20:45 Normal Saline - IV ASDIR [facility] ASSESSMENT/PLAN: Ms. Odom is a 53 yo female w/ pmh of bipolar disorder and depression BIBA for AMS reporting suicide attempt. Vital signs stable at this time w/ no acute process reported. #Overdose #SI #Bipolar Disorder #Depression #AMS -monitor -[place] Poison Control -patient 1:1 -psych consult -telemetry monitoring -utox We will continue to follow the patient. Thank you for this consultative opportunity. Visit type - Emergency Visit Emergency Visit: Yes ED Registration Date: 06/05/19 Care time: The patient presented to the Emergency Department on the above date and was hospitalized for further evaluation of their emergent condition. - New Patient This patient is new to me today: Yes Date on this admission: 06/05/19 - Critical Care Critical Care patient: Yes Total Critical Care Time (in minutes): 41 Critical Care Statement: The care of this patient involved high complexity decision making to prevent further life threatening deterioration of the patient 's condition and/or to evaluate & treat vital organ system(s) failure or risk of failure. ATTENDING PHYSICIAN STATEMENT I saw and evaluated the patient. I reviewed the resident's note and discussed the case with the resident. I agree with the resident's findings and plan as documented. SUBJECTIVE: OBJECTIVE: ASSESSMENT AND PLAN:
[2019-06-05] MEDS: SODIUM CHLORIDE 1,000 ML IV SCH (22:14)
[2019-06-05] MEDS: HEPARIN NA (PORCINE) 5,000 UNITS/ML 1ML VIAL SQ SCH (23:22)
[2019-06-05 23:37] LABS: PH,URINE 6.5 (5.0-8.0); URINE APPEARANCE CLEAR; URINE BILIRUBIN NEGATIVE (NEGATIVE); URINE COLOR YELLOW; URINE GLUCOSE (UA) 1+ (NEGATIVE); URINE KETONE NEGATIVE (NEGATIVE); URINE LEUK ESTERASE NEGATIVE (NEGATIVE); URINE NITRITE NEGATIVE (NEGATIVE); URINE PROTEIN NEGATIVE (NEGATIVE); URINE UROBILINOGEN 0.2 mg/dL (0.2-1.0)
[2019-06-05] MEDS ORDERED: METOCLOPRAMIDE HCL INJECTION 10 MG/2 ML VIAL IVPUSH ONE (23:56)
[2019-06-06 00:01] LABS: COCAINE, UR NEGATIVE ng/ml (CUTOFF=300); METHADONE, UR NEGATIVE ng/ml (CUTOFF=300); OPIATES, URI NEGATIVE ng/ml (CUTOFF=300); PHENCYCLIDINE,URINE NEGATIVE ng/ml (CUTOFF=25); URINE BARBITURATES NEGATIVE ng/ml (CUTOFF=200)
[2019-06-06 00:05] LABS: URINE AMPHETAMINES POSITIVE ng/ml (CUTOFF=500); URINE BENZODIAZEPINES POSITIVE ng/ml (CUTOFF=200)
[2019-06-06] MEDS ORDERED: METOCLOPRAMIDE HCL INJECTION 10 MG/2 ML VIAL ONE (01:39)
[2019-06-06 07:15] LABS: BASO % 0.5 % (0-2.0); EOS % 0.1 % (0-4.5); LYMPH % 21.2 % (8-40); MCH 29.6 pg (25.7-33.7); MCHC 33.4 g/dl (32.0-36.0); MEAN CELL VOLUME 88.5 fl (80-96); MEAN PLT VOLUME 7.9 fl (7.5-11.1); MONO % 5.9 % (3.8-10.2); NEUT % 72.3 % (42.8-82.8); PLATELET COUNT 259 K/MM3 (134-434); RBC 4.07 M/mm3 (3.60-5.2); RDW 12.9 % (11.6-15.6); WHITE BLOOD COUNT 9.8 K/mm3 (4.0-10.0)
[2019-06-06 07:43] LABS: ALBUMIN 3.4 g/dl (3.4-5.0); BILIRUBIN,TOTAL 0.4 mg/dL (0.2-1); BLOOD UREA NITROGEN 8.1 mg/dL (7-18); CALCIUM 8.5 mg/dL (8.5-10.1); CREATININE 0.7 mg/dL (0.55-1.3); POTASSIUM 3.6 mmol/L (3.5-5.1); TOT PROT 5.6 g/dl (6.4-8.2)
--- NOTE | 2019-06-06 09:25 | EKG ---
Test Reason : Blood Pressure : / mmHG Vent. Rate : 076 BPM Atrial Rate : 076 BPM P-R Int : 166 ms QRS Dur : 094 ms QT Int : 450 ms P-R-T Axes : 058 037 051 degrees QTc Int : 506 ms NORMAL SINUS RHYTHM POSSIBLE LEFT ATRIAL ENLARGEMENT PROLONGED QT ABNORMAL ECG WHEN COMPARED WITH ECG OF 17-FEB-2010 15:26, QT HAS LENGTHENED Confirmed by MD Blaze, Jose ([id number]) on 06/06/2019 9:25:44 AM Referred By: Confirmed By:Jose Thakur MD
--- NOTE | 2019-06-06 09:30 | EKG ---
Test Reason : Blood Pressure : / mmHG Vent. Rate : 079 BPM Atrial Rate : 079 BPM P-R Int : 174 ms QRS Dur : 102 ms QT Int : 430 ms P-R-T Axes : 070 063 059 degrees QTc Int : 493 ms NORMAL SINUS RHYTHM PROLONGED QT ABNORMAL ECG Confirmed by MD Blaze, Jose ([id number]) on 06/06/2019 9:29:55 AM Referred By: Confirmed By:Jose Thakur MD
[2019-06-06] MEDS: HEPARIN NA (PORCINE) 5,000 UNITS/ML 1ML VIAL SQ SCH (10:18)
--- NOTE | 2019-06-06 10:29 | CON.PSY ---
Psychiatry Consult Chief Complaint: I dont feel good. i have a headache. 53 gautam old female with lifelong history of Bipoalr disorder brought to Er by EMS for AMS. Patient apparantly taken an ? overdose and appera to have had a SEizure. She is a very poor Historian. According to her daughter she had 2 previous suicide attempts. [place] on Xanax, Wellbutrin, Adderal from a Psychiatrist. She lost her job and was given an eviction notice as well. Symptoms: reports: Depressed Mood, Anhedonia, Decreased Energy, Suicidality - Previous Psychiatric Treatment Outpatient: Less than 6 mos ago Inpatient: 2 or more prior admissions - Previous Substance Abuse Treatment Outpatient: None Inpatient: None - Reason for Previous Treatment Reason for Previous Treatment: Biploar Illness, Suicidal Attempt/Behavior - Current Medications Current Medications: Active Medications Heparin Sodium (Porcine) (Heparin -) 5,000 unit SQ BID [facility] Last Admin: 06/06/19 10:18 Dose: 5,000 unit Sodium Chloride (Normal Saline -) 1,000 mls @ 100 mls/hr IV ASDIR [facility] Last Admin: 06/05/19 22:14 Dose: 100 mls/hr - Allergies Allergies: Allergies Allergy/AdvReac Type Severity Reaction Status Date / Time No Known Allergies Allergy Verified 06/05/19 18:16 - Current Living Status Usual Living Arrangement: Alone - Current Mental Status Evaluation Appearance: Disheveled Attitude: Guarded - Affect Affect: Constrictive Appropriateness: Appropriate to Content - Mood Mood: Depressed - Speech/Language Expressive: Coherent - Psychomotor Activity Psychomotor Activity: Slowed - Thought Process Thought Process: Circumstantial - Thought Content Hallucinations: Absent Delusions: Absent - Self Perception Self Perception: No Impairment - Cognition Attention: Alert Orientation: Time Memory, Immediate Recall: Intact Memory, Short Term: 2/3 Memory, Remote with Promptin/3 - Concentration Serial Sevens Intact: No Simple Calculations Intact: Yes - Abstraction Proverb Interpretation: Intact Judgement: Moderately Impaired - Insight Insight: Impaired - Impulse Control Impulse Control: Moderately Impaired - Suicidal Ideation Suicidal Ideation: Yes (Drug overdose.) - Homicidal Ideation Homicidal Ideation: No Assessment/Plan 1) Continue with 1:1. 2) will follow. 3) might need In Patient Psych admission.
[2019-06-06] MEDS ORDERED: ACETAMINOPHEN 500 MG TABLET (FP) PO ONE (12:21)
[2019-06-06] MEDS ORDERED: ACETAMINOPHEN 325 MG TABLET (FP) ONE ×2 (12:22→12:23)
[2019-06-06] MEDS ORDERED: ACETAMINOPHEN 325 MG TABLET (FP) PO PRN (17:38)
--- NOTE | 2019-06-06 17:38 | PN ---
Progress Note, Physician - Current Medication List Current Medications: Active Medications Heparin Sodium (Porcine) (Heparin -) 5,000 unit SQ BID [facility] Last Admin: 06/06/19 10:18 Dose: 5,000 unit Sodium Chloride (Normal Saline -) 1,000 mls @ 100 mls/hr IV ASDIR [facility] Last Admin: 06/05/19 22:14 Dose: 100 mls/hr - Objective Vital Signs: Vital Signs Temperature 98.2 F 06/06/19 17:24 Pulse Rate 81 06/06/19 17:24 Respiratory Rate 17 06/06/19 17:24 Blood Pressure 136/78 06/06/19 17:24 O2 Sat by Pulse Oximetry (%) 99 06/06/19 17:24 Constitutional: Yes: Calm HENT: Yes: Atraumatic Neck: Yes: Supple Cardiovascular: Yes: Regular Rate and Rhythm Respiratory: Yes: CTA Bilaterally Gastrointestinal: Yes: Normal Bowel Sounds Extremities: Yes: WNL Edema: No Neurological: Yes: Alert Labs: CBC, BMP 06/06/19 06:27 06/06/19 06:27 INR, PTT INR 0.94 (0.83-1.09) 06/05/19 18:00 Problem List - Problems (1) Altered mental status Assessment/Plan: supportive measures Code(s): R41.82 - ALTERED MENTAL STATUS, UNSPECIFIED (2) Depression Code(s): F32.9 - MAJOR DEPRESSIVE DISORDER, SINGLE EPISODE, UNSPECIFIED (3) Medication adverse effect Code(s): T50.905A - ADVERSE EFFECT OF UNSP DRUG/MEDS/BIOL SUBST, INIT
[2019-06-06 20:57] VITALS: BMI 24.5
[2019-06-06] MEDS: SODIUM CHLORIDE 1,000 ML IV SCH (23:45)
[2019-06-07] MEDS: HEPARIN NA (PORCINE) 5,000 UNITS/ML 1ML VIAL SQ SCH ×3 (00:01→21:28)
[2019-06-07] MEDS ORDERED: PATIENT'S OWN MEDICATION (NON-FORMULARY) (Bupropion Hcl [Wellbutrin Xl] 300 MG) PO SCH ×2 (10:00→22:17)
[2019-06-07] MEDS ORDERED: DULoxetine HCL 60 MG CAPSULE.DR PO SCH (10:00)
[2019-06-07] MEDS ORDERED: NICOTINE 21 MG/24 HOURS TOPICAL PATCH TD ONE (12:00)
--- NOTE | 2019-06-07 12:54 | PN ---
Progress Note (short form) - Note Progress Note: Patient seen and case discussed with staff. MS: alert, oriented, good eye contact, able to comprehend, denies any acute suicidal thoughts and plans at this time. Patient said she took 6 xanax 2mg tabs because she had been under pressure. Having Financial difficulties. not hallucinating, patient has a history of taking high dose of Adderall prescribed by her Psych Dr. Marte in [place]. Plan; 1) d/c 1:1. 2) Discharge when Medically stable. 3) Psych follow up by Dr. Marte pvt psych.
--- NOTE | 2019-06-07 15:41 | EKG ---
Test Reason : Blood Pressure : / mmHG Vent. Rate : 077 BPM Atrial Rate : 077 BPM P-R Int : 162 ms QRS Dur : 094 ms QT Int : 430 ms P-R-T Axes : 056 018 036 degrees QTc Int : 486 ms SINUS RHYTHM WITH OCCASIONAL PREMATURE VENTRICULAR COMPLEXES PROLONGED QT ABNORMAL ECG WHEN COMPARED WITH ECG OF 06-JUN-2019 00:47, PREMATURE VENTRICULAR COMPLEXES ARE NOW PRESENT Confirmed by LEO WRIGHT, SEFERINO ([id number]) on 06/07/2019 3:41:22 PM [facility]erred By[facility] Confirmed By:SEFERINO BAILEY MD
--- NOTE | 2019-06-07 19:47 | PN ---
Progress Note, Physician - Current Medication List Current Medications: Active Medications Acetaminophen (Tylenol -) 650 mg PO Q6H PRN PRN Reason: FEVER Last Admin: 06/07/19 04:55 Dose: 650 mg Duloxetine HCl (Cymbalta -) 40 mg PO DAILY [facility] Heparin Sodium (Porcine) (Heparin -) 5,000 unit SQ BID [facility] Last Admin: 06/07/19 09:26 Dose: 5,000 unit Sodium Chloride (Normal Saline -) 1,000 mls @ 100 mls/hr IV ASDIR [facility] Last Admin: 06/06/19 23:45 Dose: 100 mls/hr - Objective Vital Signs: Vital Signs Temperature 97.9 F 06/07/19 18:00 Pulse Rate 78 06/07/19 18:00 Respiratory Rate 18 06/07/19 18:00 Blood Pressure 146/98 06/07/19 18:00 O2 Sat by Pulse Oximetry (%) 98 06/07/19 09:00 Constitutional: Yes: No Distress HENT: Yes: Atraumatic Neck: Yes: Supple Cardiovascular: Yes: Regular Rate and Rhythm Respiratory: Yes: CTA Bilaterally Extremities: Yes: WNL Neurological: Yes: Alert, Oriented Labs: CBC, BMP 06/06/19 06:27 06/06/19 06:27 INR, PTT INR 0.94 (0.83-1.09) 06/05/19 18:00 Problem List - Problems (1) Altered mental status Assessment/Plan: doing well 1:1...dc by psych Code(s): R41.82 - ALTERED MENTAL STATUS, UNSPECIFIED (2) Depression Assessment/Plan: continue home meds Code(s): F32.9 - MAJOR DEPRESSIVE DISORDER, SINGLE EPISODE, UNSPECIFIED (3) Medication adverse effect Code(s): T50.905A - ADVERSE EFFECT OF UNSP DRUG/MEDS/BIOL SUBST, INIT
[2019-06-07] MEDS: SODIUM CHLORIDE 1,000 ML IV SCH (21:20)
[2019-06-07] MEDS ORDERED: DULoxetine HCL 30 MG CAPSULE.DR PO SCH (22:17)
[2019-06-08 06:38] VITALS: PULSE 64
[2019-06-08 08:26] VITALS: BP 144/78; TEMP 98
[2019-06-08] MEDS ORDERED: DULoxetine HCL 20 MG CAPSULE.DR PO SCH (10:00)
[2019-06-08] MEDS: HEPARIN NA (PORCINE) 5,000 UNITS/ML 1ML VIAL SQ SCH (10:24)
--- NOTE | 2019-06-08 16:28 | DS ---
Physical Examination Vital Signs: Vital Signs Temperature 98.0 F 06/08/19 08:00 Pulse Rate 64 06/08/19 08:00 Respiratory Rate 16 06/08/19 08:00 Blood Pressure 144/78 06/08/19 08:00 O2 Sat by Pulse Oximetry (%) 99 06/07/19 21:00 Labs: CBC, BMP 06/06/19 06:27 06/06/19 06:27 Discharge Summary Problems reviewed: Yes Reason For Visit: DEPRESSION,ADVERSE EFFECT OF DRUGS,ALT MENTAL STAT - Instructions Diet, Activity, Other Instructions: follow up with your own psychiatrist Disposition: HOME - Home Medications Comprehensive Discharge Medication List: Ambulatory Orders Bupropion HCl [Wellbutrin Xl] 300 mg PO DAILY 01/02/19 Dextroamphetamine/Amphetamine [Adderall Xr 30 mg Capsule] 60 mg PO DAILY Duloxetine HCl [Cymbalta] 120 mg PO DAILY 01/02/19 dc katalina fu psych
== END 2019-06-08 11:59 | disposition home or self-care (01) | DRG 812 ==
LOC: JER 17:46 → JERBED 20:12 → J2W 06-06 20:19
PROVIDERS: ADMIT Internal Medicine; ATTEND Internal Medicine
DX: T42.4X4A Poisoning by benzodiazepines, undetermined, initial encounter (principal); R41.82 Altered mental status, unspecified; R94.31 Abnormal electrocardiogram [ECG] [EKG]; F31.9 Bipolar disorder, unspecified; Y92.098 Other place in other non-institutional residence as the place of occurrence of the external cause
CPT/HCPCS: 36415; 70450-TC; 71045-TC-FY; 80053; 80178; 80307; 81003; 82140; 82550; 82803; 83735; 84443; 84484; 85025; 85610; 85730; 87086; 93005; 93010; 99285-25; J1644; J7030

== ENCOUNTER 2022-10-24 21:00 | Observation (INO) | payer OTHER ==
[2022-10-24] MEDS ORDERED: ONDANSETRON 4 MG/2 ML VIAL IVPUSH ONE (22:21)
[2022-10-24] MEDS ORDERED: LACTATED RINGERS SOLUTION 1000 ML INFUS.BAG IV ONE (22:22)
[2022-10-24] MEDS ORDERED: ACETAMINOPHEN 1000 MG/100 ML BAG IVPB ONE (23:00)
[2022-10-24] MEDS ORDERED: METOCLOPRAMIDE HCL INJECTION 10 MG/2 ML VIAL IVPUSH ONE (23:00)
[2022-10-24] MEDS ORDERED: METOCLOPRAMIDE HCL INJECTION 10 MG/2 ML VIAL ONE (23:10)
[2022-10-24] MEDS ORDERED: ACETAMINOPHEN INJECTION 100 ML IVPB ONE (23:11)
[2022-10-24 23:26] LABS: BASO % 0.4 % (0-2.0); HEMATOCRIT 42.2 % (32.4-45.2); HEMOGLOBIN 14.3 GM/dL (10.7-15.3); LYMPH % 10.4 % (8-40); MCH 28.8 pg (25.7-33.7); MCHC 33.8 g/dl (32.0-36.0); MEAN CELL VOLUME 85.2 fl (80-96); MEAN PLT VOLUME 8.3 fl (7.5-11.1); MONO % 7.7 % (3.8-10.2); NEUT % 81.5 % (42.8-82.8); PLATELET COUNT 311 10^3/uL (134-434); RBC 4.95 M/mm3 (3.60-5.2); RDW 13.6 % (11.6-15.6); WHITE BLOOD COUNT 14.5 K/mm3 (4.0-10.0)
[2022-10-24 23:49] LABS: CALCIUM 9.2 mg/dL (8.5-10.1)
[2022-10-24 23:50] LABS: ALBUMIN 4.2 g/dl (3.4-5.0); BLOOD UREA NITROGEN 32.4 mg/dL (7-18); MAGNESIUM 2.8 mg/dL (1.8-2.4)
[2022-10-24 23:53] LABS: CREATININE 3.2 mg/dL (0.55-1.3)
[2022-10-24 23:55] LABS: BILIRUBIN,TOTAL 0.7 mg/dL (0.2-1); TOT PROT 7.4 g/dl (6.4-8.2)
[2022-10-25 00:53] LABS: EPI CELLS 33 /uL (0-25.1); HYALINE CASTS 10 /uL (0-3.1); URINE APPEARANCE TURBID; URINE BACTERIA 232 /uL (0-1359); URINE BILIRUBIN NEGATIVE (NEGATIVE); URINE COLOR YELLOW; URINE GLUCOSE (UA) NEGATIVE (NEGATIVE); URINE KETONE TRACE (NEGATIVE); URINE LEUK ESTERASE TRACE (NEGATIVE); URINE NITRITE NEGATIVE (NEGATIVE); URINE PROTEIN 2+ (NEGATIVE); URINE RBC 32 /uL (0-23.9); URINE UROBILINOGEN 0.2 mg/dL (0.2-1.0); URINE WBC 280 /uL (0-25.8)
[2022-10-25] MEDS ORDERED: LACTATED RINGERS SOLUTION 1000 ML INFUS.BAG IV ONE (01:40)
[2022-10-25] MEDS ORDERED: morphine CARPU-JECT 2 MG/1 ML DISP.SYRIN IVPUSH ONE (01:52)
[2022-10-25] MEDS ORDERED: DEXTROSE 5%-0.45% SALINE 1,000 ML IV SCH (02:45)
[2022-10-25 05:15] LABS: COCAINE, UR NEGATIVE (NEGATIVE); OPIATES, URI NEGATIVE (NEGATIVE); URINE BARBITURATES NEGATIVE (NEGATIVE)
[2022-10-25 05:16] LABS: METHADONE, UR NEGATIVE (NEGATIVE); PHENCYCLIDINE,URINE NEGATIVE (NEGATIVE)
[2022-10-25 05:24] LABS: URINE AMPHETAMINES POSITIVE (NEGATIVE); URINE BENZODIAZEPINES POSITIVE (NEGATIVE)
[2022-10-25] MEDS ORDERED: ONDANSETRON 4 MG/2 ML VIAL IVPUSH ONE (05:59)
[2022-10-25] MEDS: ACETAMINOPHEN 325 MG TABLET (FP) PO PRN ×2 (06:51→11:56)
[2022-10-25 09:04] VITALS: BMI 27.2
[2022-10-25] MEDS: SODIUM CHLORIDE 1,000 ML IV SCH (10:00)
[2022-10-25 10:20] LABS: BASO % 0.6 % (0-2.0); HEMATOCRIT 37.8 % (32.4-45.2); HEMOGLOBIN 12.9 GM/dL (10.7-15.3); LYMPH % 11.8 % (8-40); MCH 28.9 pg (25.7-33.7); MCHC 34.3 g/dl (32.0-36.0); MEAN CELL VOLUME 84.5 fl (80-96); MEAN PLT VOLUME 8.6 fl (7.5-11.1); MONO % 6.1 % (3.8-10.2); NEUT % 81.5 % (42.8-82.8); PLATELET COUNT 285 10^3/uL (134-434); RBC 4.47 M/mm3 (3.60-5.2); RDW 13.5 % (11.6-15.6); WHITE BLOOD COUNT 12.1 K/mm3 (4.0-10.0)
[2022-10-25 10:45] LABS: CALCIUM 8.9 mg/dL (8.5-10.1)
[2022-10-25 10:46] LABS: ALBUMIN 3.8 g/dl (3.4-5.0); BLOOD UREA NITROGEN 35.1 mg/dL (7-18)
[2022-10-25] MEDS ORDERED: lamoTRIgine 100 MG TABLET PO SCH (10:47)
[2022-10-25 10:49] LABS: CREATININE 3.4 mg/dL (0.55-1.3)
[2022-10-25 10:50] LABS: BILIRUBIN,TOTAL 0.7 mg/dL (0.2-1)
[2022-10-25 10:51] LABS: TOT PROT 6.4 g/dl (6.4-8.2)
[2022-10-25] MEDS: DULoxetine HCL 30 MG CAPSULE.DR PO SCH (11:05)
[2022-10-25] MEDS: lamoTRIgine 100 MG TABLET PO SCH (11:06)
[2022-10-25] MEDS ORDERED: POTASSIUM CHLORIDE TABS 20 MEQ TABLET.ER (FP) PO ONE (11:07)
[2022-10-25] MEDS: ONDANSETRON 4 MG/2 ML VIAL IVPUSH PRN (12:25)
[2022-10-25] MEDS ORDERED: SCOPOLAMINE HYDROBROMIDE 1 PATCH PATCH.TD72 TD SCH (15:00)
[2022-10-26] MEDS: lamoTRIgine 100 MG TABLET PO SCH (09:32)
[2022-10-26] MEDS: ONDANSETRON 4 MG/2 ML VIAL IVPUSH PRN (09:35)
[2022-10-26] MEDS: DULoxetine HCL 30 MG CAPSULE.DR PO SCH (09:35)
[2022-10-26 09:52] LABS: BASO % 0.5 % (0-2.0); EOS % 0.4 % (0-4.5); HEMATOCRIT 34.8 % (32.4-45.2); HEMOGLOBIN 12.2 GM/dL (10.7-15.3); LYMPH % 23.9 % (8-40); MCH 29.5 pg (25.7-33.7); MEAN CELL VOLUME 84.5 fl (80-96); MEAN PLT VOLUME 8.5 fl (7.5-11.1); MONO % 9.2 % (3.8-10.2); PLATELET COUNT 236 10^3/uL (134-434); RBC 4.12 M/mm3 (3.60-5.2); RDW 13.2 % (11.6-15.6)
[2022-10-26 10:25] LABS: CALCIUM 8.2 mg/dL (8.5-10.1)
[2022-10-26 10:26] LABS: ALBUMIN 3.3 g/dl (3.4-5.0); MAGNESIUM 2.2 mg/dL (1.8-2.4)
[2022-10-26 10:29] LABS: CREATININE 1.8 mg/dL (0.55-1.3); PHOSPHOROUS 3.4 mg/dL (2.5-4.9)
[2022-10-26 10:30] LABS: BILIRUBIN,TOTAL 0.5 mg/dL (0.2-1); TOT PROT 5.8 g/dl (6.4-8.2)
[2022-10-26] MEDS: SODIUM CHLORIDE 1,000 ML IV SCH (11:00)
[2022-10-26] MEDS: SODIUM CHLORIDE 0.45% 1,000 ML IV SCH (13:00)
[2022-10-26] MEDS: ACETAMINOPHEN 325 MG TABLET (FP) PO PRN ×2 (14:58)
[2022-10-27] MEDS: SODIUM CHLORIDE 0.45% 1,000 ML IV SCH ×2 (00:41→08:29)
[2022-10-27] MEDS: ACETAMINOPHEN 325 MG TABLET (FP) PO PRN (04:44)
[2022-10-27] MEDS: lamoTRIgine 100 MG TABLET PO SCH (09:15)
[2022-10-27 09:16] LABS: BASO % 0.7 % (0-2.0); EOS % 0.5 % (0-4.5); HEMATOCRIT 33.7 % (32.4-45.2); HEMOGLOBIN 11.7 GM/dL (10.7-15.3); LYMPH % 23.3 % (8-40); MCH 29.4 pg (25.7-33.7); MCHC 34.7 g/dl (32.0-36.0); MEAN CELL VOLUME 84.6 fl (80-96); MEAN PLT VOLUME 8.5 fl (7.5-11.1); MONO % 8.5 % (3.8-10.2); PLATELET COUNT 217 10^3/uL (134-434); RBC 3.98 M/mm3 (3.60-5.2); RDW 12.9 % (11.6-15.6); WHITE BLOOD COUNT 7.2 K/mm3 (4.0-10.0)
[2022-10-27] MEDS: DULoxetine HCL 30 MG CAPSULE.DR PO SCH ×2 (09:17→09:23)
[2022-10-27 09:54] LABS: CALCIUM 8.7 mg/dL (8.5-10.1)
[2022-10-27 09:55] LABS: ALBUMIN 3.2 g/dl (3.4-5.0); BLOOD UREA NITROGEN 14.5 mg/dL (7-18); MAGNESIUM 1.9 mg/dL (1.8-2.4)
[2022-10-27 09:57] LABS: BILIRUBIN,TOTAL 0.4 mg/dL (0.2-1)
[2022-10-27 09:58] LABS: CREATININE 1.3 mg/dL (0.55-1.3)
[2022-10-27 09:59] LABS: TOT PROT 5.6 g/dl (6.4-8.2)
[2022-10-27] MEDS ORDERED: ALPRAZolam 0.25 MG TABLET PO PRN (12:55)
[2022-10-27 14:56] VITALS: BP 160/92; PULSE 125; RESP 20; TEMP 98.5
[2022-10-27] MEDS ORDERED: cloNIDine HCL 0.1 MG TABLET PO SCH (22:00)
[2022-10-28] MEDS ORDERED: ATOMOXETINE HCL 40 MG CAPSULE PO SCH (10:00)
== END 2022-10-27 15:40 | disposition home or self-care (01) ==
LOC: JER 21:00 → JERBED 10-25 02:24 → J8W 10-25 05:39
PROVIDERS: ADMIT Internal Medicine; ATTEND Internal Medicine
PROC: 3E033NZ Introduction of Analgesics, Hypnotics, Sedatives into Peripheral Vein, Percutaneous Approach (ICD-10-PCS; principal; 2022-10-25)
PROC: 3E033GC Introduction of Other Therapeutic Substance into Peripheral Vein, Percutaneous Approach (ICD-10-PCS; 2022-10-25)
PROC: 3E0337Z Introduction of Electrolytic and Water Balance Substance into Peripheral Vein, Percutaneous Approach (ICD-10-PCS; 2022-10-25)
DX: N17.9 Acute kidney failure, unspecified (principal); F31.9 Bipolar disorder, unspecified; E86.0 Dehydration; R82.81 Pyuria; R11.2 Nausea with vomiting, unspecified; Z29.9 Encounter for prophylactic measures, unspecified; R11.10 Vomiting, unspecified; R19.7 Diarrhea, unspecified
CPT/HCPCS: 0241U-QW; 36415; 70450-TC; 74176-TC; 76775-TC; 80053; 80307; 81003; 82436; 82570; 83690; 83735; 83935; 84100; 84133; 84156; 84300; 85025; 87040; 87086; 93005; 93010; 96361; 96365; 96375; 96376; 99285-25; G0378